=== PATIENT | female | born 1960 | race Caucasian/White ===

== ENCOUNTER 2016-08-17 21:03 | Emergency (ER) | payer MEDICARE, MEDICAID ==
[~2016-08-17 21:03] MED LIST: ABILIFY10 MG PO; ABILIFY5 MG PO; ACIPHEX20 MG PO; ADOXA100 MG PO; ADVAIR 2501 DISK W/D IH; ADVIL200 M1 PO; ALBUTEROL INH 0.3 ML INH; AMBIEN5 MG PO; AMOXIL500 MG PO; ANAPROX DS550 MG; ANAPROX DS550 MG PO; ANTI-GAS/8080 MG PO; ANTIBIOTIC; ANTIVERT25 MG; ANTIVERT25 MG PO; ASPIR 8181 MG PO; ASPIRIN325 M3 PO; ASPIRIN325 MG PO; ATIVAN1 MG PO; AUGMENTIN 500-1 EAC2 PO; BACTRIM DS TABL1 TAB PO; BP MED; BUTALBIT-ACETA1 EACH PO; BYSTOLIC5 M1 PO; CALAN80 MG PO; CEFDINIR300 M1 PO; CEPHALEXIN500 M1 PO; CIPRO500 MG PO; DELTASONE10 MG PO; DEPAKOTE D250 MG/TAB PO; DEPAKOTE D500 MG/TA1 PO; DEPAKOTE ER500 M1 PO; DEPAKOTE500 M1 PO; DEPAKOTE500 MG PO; DICYCLOMINE HCL10 MG PO; DOCUSATE SODIU100 M2 PO; DULCOLAX5 M1 PO; ESTRACE0.5 MG; ESTROGEN; FE C TABLET1 TAB; FLEXERIL10 MG PO; FLUOXETINE HCL20 MG PO; FUROSEMIDE80 M2 PO; GABAPENTIN300 MG PO; GLUCOPHAGE500 M3 PO; H; HYCOTUSS EXPEC480 ML PO; HYDROCHLOROTH12.5 MG PO; HYDROCHLOROTHIA25 MG PO; HYDROCORTISONE10 MG PO; HYDROXYZINE HCL25 M1 PO; IBUPROFEN600 MG; IMITREX20 MG/SPRA NS; IMITREX5 MG NS; IMITREX50 MG PO; IRON1 TAB; ISOSORBIDE MONO30 M4 PO; LEVAQUIN500 MG PO; LEVAQUIN750 M1 PO; LEVAQUIN750 MG PO; LEVOFLOXACIN750 M1 PO; LEVOFLOXACIN750 MG PO; LEVOTHROID88 MCG; LEVOTHYROXINE125 MCG PO; LITHIUM CARBON450 MG; LITHIUM CARBON600 MG; LITHIUM CARBON600 MG PO; LOPERAMIDE2 M3 PO; LOPRESSOR25 MG/TA6 PO; LORAZEPAM0.5 M1 PO; LORCET PLUS 7.1 EACH PO; MECLIZINE HCL25 MG PO; MELOXICAM15 M1 PO; METOPROLOL TART25 MG PO; MIRALAX17 GM PO; MOTRIN600 MG PO; MOTRIN800 MG PO; MULTIVITAMIN1 TAB; NORCO 10/325 TA1 TAB PO; NORCO 5-325 TA1 EACH PO; NORCO 5/325 TAB1 TAB PO; NORCO 5/3251 TAB PO; NORCO 7.5-3251 EACH PO; OMEPRAZOLE20 M3 PO; OMEPRAZOLE20 MG PO; OXYBUTYNIN CHLOR5 MG PO; OXYCODONE/APAP PO; PAMELOR10 M2 PO; PAROXETINE HCL20 M1 PO; PEN-VEE K500 MG PO; PERCOCET 5/3251 TAB PO; PERCOCET 5MG/AP1 TA2 PO; PHENERGAN W/CO120 ML PO; PHENERGAN25 MG PO; POLYETHYLENE GLY1 G1 PO; POTASSIUM CHLO20 ME3 PO; PREDNISONE10 M1 PO; PREDNISONE10 MG PO; PREDNISONE20 M1 PO; PREDNISONE20 MG PO; PRILOSEC OTC20 MG PO; PRILOSEC20 MG PO; PRILOSEC40 MG PO; PROMETHEGAN25 MG PR; PROZAC20 M3 PO; PROZAC20 MG PO; REGLAN10 MG PO; ROBITUSSIN15 MG/5 ML PO; SEROQUEL100 M2 PO; SYMBYAX 6-251 UDCAP; SYMBYAX PO; SYNTHROID; SYNTHROID125 MCG PO; SYNTHROID25 MCG PO; SYNTHROID50 MCG; THYROID; TOPAMAX50 M2 PO; TOPIRAMATE50 MG PO; TRAMADOL HCL50 M2 PO; TRAZODONE HCL100 M1 PO; TRAZODONE100 MG PO; TYLENOL325 MG PO; TYLENOL500 MG PO; VICODIN 5/500 T1 TAB; VICODIN 5/500 T1 TAB PO; VITAMIN B12 PO; VITAMIN D-50000 IU/C PO; VITAMIN D250000 UNI1 PO; XANAX; XANAX0.25 MG PO; ZANTAC150 MG PO; ZESTRIL10 M3 PO; ZOFRAN ODT4 MG/UDTAB PO; ZOFRAN4 M2 PO; [UNRECOGNIZED DRUG - OTHER]; [UNRECOGNIZED DRUG - OTHER]; [UNRECOGNIZED DRUG - OTHER] PO; [UNRECOGNIZED DRUG - REMARK]
[2016-08-17] MEDS ORDERED: TRAMADOL HCL50 M2 PO (22:36)
== END 2016-08-17 23:10 ==
LOC: EDMED 21:03
DX: T22.211A Burn of second degree of right forearm, initial encounter (principal); T31.0 Burns involving less than 10% of body surface; I10 Essential (primary) hypertension; E11.9 Type 2 diabetes mellitus without complications; K21.9 Gastro-esophageal reflux disease without esophagitis; J44.9 Chronic obstructive pulmonary disease, unspecified; M19.90 Unspecified osteoarthritis, unspecified site; X12.XXXA Contact with other hot fluids, initial encounter; Y92.009 Unspecified place in unspecified non-institutional (private) residence as the place of occurrence of the external cause
CPT/HCPCS: J2270